=== PATIENT | female | born 1955 | race Caucasian/White ===

== ENCOUNTER 2019-04-23 11:49 | Observation (INO) | payer BC ==
[2019-04-23] MEDS ORDERED: IPRATROPIUM/ALBUTEROL (0.5MG/3MG) NEB INH ONE ×2 (12:06→12:07)
[2019-04-23] MEDS ORDERED: METHYLPREDNISOLONE PF 125MG/VIAL IVP ONE (12:07)
[2019-04-23] MEDS ORDERED: 0.9 % SODIUM CHLORIDE 1,000 ML BAG IV ONE (12:08)
--- NOTE | 2019-04-23 12:11 | Emergency Department Record ---
History of Present Illness - General Chief Complaint: Shortness of breath Stated Complaint: BRONCHITIS WORSE Time Seen by Provider: 04/23/19 12:03 Source: Patient Mode of Arrival: Ambulatory Limitations: No limitations - History of Present Illness Initial Comments: 64 yo female presents with a cough that has been ongoing for about three weeks. The cough has gradually increased. She was seen over the weekend at the [facility]. She was given breathing treatments, cough medication, steroids and antibiotics. She is not improved. She now has some green sputum. No fever. No blood in the sputum. She is a non smoker. No pulmonary disease history. MD Complaint: Cough Onset/Timin -: Week(s) Severity: Moderate Consistency: Constant Improves With: Nothing Worsens With: Coughing Known History Of: Other Associated Symptoms: Cough, Sputum production - Related Data Home Medications Medication Instructions Recorded Confirmed Last Taken Albuterol Sulfate [Proair Hfa] 1 - 2 puff IH .EVERY 4-6 HOURS PRN 04/23/19 04/23/19 Unknown Benzonatate 200 mg PO TID 04/23/19 04/23/19 Unknown Clobetasol Propionate [Temovate] 30 gm TP ASDIR 04/23/19 04/23/19 Unknown Ipratropium [place] [Atrovent Hfa] 2 spray IH TID 04/23/19 04/23/19 Unknown Lisinopril/Hydrochlorothiazide 2 tab PO DAILY 04/23/19 04/23/19 Unknown [Lisinopril-Hctz 20-12.5 mg Tab] Prednisone [Prednisone 10Mg] 10 mg PO ASDIR 04/23/19 04/23/19 Unknown Allergies Allergy/AdvReac Type Severity Reaction Status Date / Time amoxicillin Allergy RASH Verified 04/23/19 12:01 metronidazole Allergy NAUSEA AND Verified 04/23/19 12:01 VOMITING Travel Screening - Travel/Exposure Within Last 30 Days Have you traveled within the last 30 days?: No - Travel/Exposure Within Last Year Have you traveled outside the [place] in the last year?: No - Additonal Travel Details Have you been exposed to anyone with a communicable illness?: No - Travel Symptoms Symptom Screening: None Review of Systems Constitutional: Denies: Chills, Fever, Malaise, Weakness Eyes: Denies: Eye discharge ENT: Denies: Congestion, Throat pain Respiratory: Reports: Cough, Dyspnea, Wheezes. Denies: Hemoptysis, Stridor Cardiovascular: Denies: Chest pain, Palpitations, Syncope Endocrine: Denies: Fatigue, Polydipsia, Polyuria Gastrointestinal: Denies: Abdominal pain, Diarrhea, Nausea, Vomiting Genitourinary: Denies: Dysuria, Urgency Musculoskeletal: Denies: Arthralgia, Back pain, Myalgia, Neck pain Neurological: Denies: Headache, Numbness, Weakness Psychiatric: Denies: Anxiety Hematological/Lymphatic: Denies: Easy bleeding, Easy bruising Past Medical History - SOCIAL HISTORY Smoking Status: Never smoker Alcohol Use: Rare Drug Use: None - RESPIRATORY Hx Respiratory Disorders: No - CARDIOVASCULAR Hx Cardio Disorders: Yes Hx Hypertension: Yes Hx Irregular Heartbeat: Yes - NEURO Hx Neuro Disorders: No - GI Hx GI Disorders: No - Hx Genitourinary Disorders: No - ENDOCRINE Hx Endocrine Disorders: No - MUSCULOSKELETAL Hx Musculoskeletal Disorders: No - PSYCH Hx Psych Problems: No - HEMATOLOGY/ONCOLOGY Hx Hematology/Oncology Disorders: Yes Hx Cancer: Yes (uterine) Hx Chemotherapy: Yes Hx Radiation Therapy: Yes Family Medical History Any Significant Family History?: No Physical Exam - General General Appearance: Alert, Oriented x3, Cooperative, No acute distress Limitations: No limitations - Head Head exam: Atraumatic, Normal inspection - Eye Eye exam: Normal appearance, PERRL. negative: Conjunctival injection, Scleral icterus - ENT ENT exam: Normal exam, Mucous membranes moist Ear exam: Normal external inspection Nasal Exam: Normal inspection Mouth exam: Normal external inspection - Neck Neck exam: Normal inspection - Respiratory Respiratory exam: negative: Accessory muscle use, Prolonged expiratory, Rhonchi, Stridor, Wheezes - Cardiovascular Cardiovascular Exam: Regular rate, Normal rhythm, Normal heart sounds - GI/Abdominal GI/Abdominal exam: Soft. negative: Tenderness - Rectal Rectal exam: Deferred - exam: Deferred - Extremities Extremities exam: Normal inspection, Full ROM. negative: Calf tenderness, Pedal edema, Tenderness - Back Back exam: Denies: CVA tenderness (R), CVA tenderness (L) - Neurological Neurological exam: Alert, Oriented X3 - Psychiatric Psychiatric exam: Normal affect, Normal mood - Skin Skin exam: Dry, Intact, Normal color, Warm Course Vital Signs 04/23/19 11:51 Temperature 97.8 F Pulse Rate 71 Respiratory 20 Rate Blood Pressure 199/102 Pulse Ox 97 - Reevaluation(s) Reevaluation #1: 04/23/19 13:35 The CXR was reviewed No acute process The CBC was negative for acute process The HCO3 was 18 and AG 18 K is 3.3 04/23/19 13:54 The patient continues to have some wheezing and coughing I recommend OBV for breathing treatments and initiation of antibiotic with the new green sputum Medical Decision Making - Lab Data Result diagrams: 04/23/19 12:55 04/23/19 12:55 Disposition Disposition: Admit Clinical Impression: Bronchitis, Reactive airway disease that is not asthma Dyspnea Qualifiers: Dyspnea type: unspecified Qualified Code(s): R06.00 - Dyspnea, unspecified Disposition: Still a Patient at [facility] Decision to Admit: Admit from ER Decision to Admit Date: 04/23/19 Decision to Admit Time: 13:56 Condition: (2) Stable Forms: Patient Portal Access Time of Disposition: 13:56 Quality - Quality Measures Quality Measures: N/A - Blood Pressure Screening Does Patient Have Any of the Following: Active Dx of HTN Blood Pressure Classification: Hypertensive Reading Systolic Measurement: 199 Diastolic Measurement: 102 Screening for High Blood Pressure: Patient Exclusion, Hx of HTN [G9744]
[2019-04-23 13:04] LABS: ABSOLUTE NEUTROPHIL COUNT 8.11; BASO % 1.2 % (0-6); EOS % 0.1 % (0-6); GRAN % 75.4 % (47-80); HEMATOCRIT 42.1 % (35.0-47.0); HEMOGLOBIN 14.3 gm/dl (11.6-16.0); LYMPH % 17.4 % (16-45); MEAN CELL VOLUME 92.3 fl (81-97); MEAN CORPUSCULAR HEMOGLOBIN 31.4 pg (27-33); MEAN PLATELET VOLUME 11.2 fl (7.4-10.4); MONO % 5.9 % (0-9); PLATELET COUNT 138 K/uL (130-400); RED BLOOD COUNT 4.56 M/uL (3.80-5.40); RED CELL DISTRIBUTION WIDTH 12.4 % (11.5-14.5); WHITE BLOOD COUNT W/O DIFF 10.8 K/uL (4.2-12.2)
[2019-04-23 13:14] LABS: BLOOD UREA NITROGEN 16 mg/dL (8-23)
[2019-04-23 13:15] LABS: CREATININE 0.6 mg/dL (0.5-0.9); EST GLOMERULAR FILTRATION RATE > 60 mL/min
[2019-04-23 13:17] LABS: GLUCOSE,RANDOM 154 mg/dL (74-109)
[2019-04-23] MEDS ORDERED: AZITHROMYCIN 500 MG TABLET PO ONE (13:53)
[2019-04-23] MEDS ORDERED: CLOBETASOL PROPIONATE 30 GM TP SCH (14:31)
[2019-04-23] MEDS ORDERED: ALBUTEROL SULFATE (0.083%) 2.5 MG/3 ML NEB INH PRN (14:31)
[2019-04-23] MEDS ORDERED: ACETAMINOPHEN 325 MG TAB PO PRN (14:31)
[2019-04-23] MEDS: IPRATROPIUM/ALBUTEROL (0.5MG/3MG) NEB INH SCH ×3 (14:59→22:08)
[2019-04-23] MEDS ORDERED: CEFTRIAXONE 1GM/50ML BAG 1 GM/50 ML BAG IVPB SCH (15:00)
[2019-04-23] MEDS: POTASSIUM CHL 20MEQ IN 1L NS 20 MEQ/1,000 ML BAG IV SCH (15:52)
[2019-04-23] MEDS: BENZONATATE 100 MG CAPSULE PO SCH ×2 (16:35→21:34)
--- NOTE | 2019-04-23 17:33 | RADIOLOGY REPORT ---
EXAM: CHEST 2 VIEWS HISTORY: NONPRODUCTIVE COUGH FOR TWO WEEKS. TECHNIQUE: Two views of the chest. COMPARISON: None. FINDINGS: The heart and mediastinum appear normal. The lungs are clear. Skeletal structures show no acute or suspicious finding. IMPRESSION: NO SIGN OF ACUTE CHEST PATHOLOGY. JOB NUMBER: [id number] MTDD
[2019-04-23] MEDS: METHYLPREDNISOLONE PF 125MG/VIAL IVP SCH (21:33)
[2019-04-23] MEDS: AMLODIPINE BESYLATE 5MG TAB PO SCH (21:33)
[2019-04-23] MEDS ORDERED: GUAIFENESIN/D-METH. 10 ML UDC PO PRN (23:07)
[2019-04-23] MEDS ORDERED: DIPHENHYDRAMINE HCL 25 MG CAPSULE PO PRN (23:10)
[2019-04-24] MEDS: POTASSIUM CHL 20MEQ IN 1L NS 20 MEQ/1,000 ML BAG IV SCH (02:32)
[2019-04-24] MEDS: METHYLPREDNISOLONE PF 125MG/VIAL IVP SCH (05:36)
[2019-04-24] MEDS: BENZONATATE 100 MG CAPSULE PO SCH (05:37)
[2019-04-24] MEDS: IPRATROPIUM/ALBUTEROL (0.5MG/3MG) NEB INH SCH ×2 (06:11→10:13)
[2019-04-24 07:14] LABS: ABSOLUTE NEUTROPHIL COUNT 5.24; HEMATOCRIT 38.8 % (35.0-47.0); MEAN CELL VOLUME 91.5 fl (81-97); MEAN CORPUSCULAR HEMOGLOBIN 30.7 pg (27-33); MEAN CORPUSCULAR HGB CONC 33.5 g/dl (32-36); PLATELET COUNT 151 K/uL (130-400); RED BLOOD COUNT 4.24 M/uL (3.80-5.40); RED CELL DISTRIBUTION WIDTH 12.5 % (11.5-14.5); WHITE BLOOD COUNT W/O DIFF 6.7 K/uL (4.2-12.2)
[2019-04-24 07:28] LABS: BLOOD UREA NITROGEN 8 mg/dL (8-23); CREATININE 0.5 mg/dL (0.5-0.9); EST GLOMERULAR FILTRATION RATE > 60 mL/min; GLUCOSE,RANDOM 176 mg/dL (74-109)
[2019-04-24 07:35] LABS: PLATELET ESTIMATE NORMAL (NORMAL)
[2019-04-24] MEDS: AMLODIPINE BESYLATE 5MG TAB PO SCH (09:33)
[2019-04-24] MEDS ORDERED: AZITHROMYCIN 500 MG TABLET PO SCH (10:00)
[2019-04-24] MEDS ORDERED: HYDROCHLOROTHIAZIDE 25 MG TABLET PO SCH (10:00)
[2019-04-24] MEDS ORDERED: LISINOPRIL 20 MG TABLET PO SCH (10:00)
--- NOTE | 2019-04-24 11:34 | History & Physical ---
History of Present Illness - Date of Service Date of Service for History & Physical: 04/24/19 - History of Present Illness Admitting Diagnosis: Bronchitis, wheezying, dyspnea History of Present Illness: Estella Chavarria is a 64 y.o. F who presented to [facility] ED with c/o cough x 3 weeks and increasing SOB. Was seen on 04/21/19 at [facility] and was given breathing tx, tessalon perles, a prednisone taper and antibiotics. She presented to ED d/t feeling as thought she couldn't catch her breath. She denied fever, blood in sputum or chills. Did report green sputum. No hx of smoking, COPD or asthma. 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 Previous PCP: Dr. Farrell who has retired. ED course -CXR: no acute process -CBC WNL -HCO3: 18, AG 18, K+ 3.3 -Was started on Azithromycin, breathing tx and IV Salumedrol in the ED 04/24/19 1130 VS: T 97.7, HR 87, BP 141/76, RR 18, SPO2 98% on RA Pt sitting up in bedside chair with spouse at bedside. A&Ox3. Reports feeling better than yesterday and as though she can breathe today. Reports cough is still present. Reports that she does have a constant "tickle" in her throat x many years in addition to acute cough x 3 weeks. States that the tessalon perles have not been effective in helping relief the cough. Denies having any pain or SOB. Feels ready to discharge. BP elevated last evening. Was started on Norvasc 2.5mg daily. BP improved today. Pt reports that she hasn't taken her BP meds for a few days d/t feeling nauseated and not well from the bronchitis. Has been on Lisinopril 40mg daily x 20 years which she relates to the constant "tickle". Appears as though pt is also taking 62.5mg of HCTZ at home through combo meds. Discussed changing BP regimen with pt and pt agreeable as pt will be following up as a new patient [facility] in approximately 2 weeks. Travel Screening - Travel/Exposure Within Last 30 Days Have you traveled within the last 30 days?: No - Travel/Exposure Within Last Year Have you traveled outside the [place] in the last year?: No - Additonal Travel Details Have you been exposed to anyone with a communicable illness?: No - Travel Symptoms Symptom Screening: None Review of Systems Reviewed: No additional complaints except as noted below Constitutional: Denies: Chills, Fever, Malaise, Weakness Eyes: Denies: Eye discharge ENT: Denies: Congestion, Throat pain Respiratory: Reports: Cough, Dyspnea, Wheezes. Denies: Hemoptysis, Stridor Cardiovascular: Denies: Chest pain, Dyspnea on exertion, Edema, Palpitations, Syncope Endocrine: Denies: Fatigue Gastrointestinal: Denies: Abdominal pain, Nausea, Vomiting Musculoskeletal: Denies: Arthralgia, Back pain, Myalgia, Neck pain Neurological: Denies: Headache, Numbness, Weakness Psychiatric: Denies: Anxiety Hematological/Lymphatic: Denies: Easy bleeding, Easy bruising Past Medical History - SOCIAL HISTORY Smoking Status: Never smoker - RESPIRATORY Hx Respiratory Disorders: No - CARDIOVASCULAR Hx Cardio Disorders: Yes Hx Hypertension: Yes Hx Irregular Heartbeat: Yes - NEURO Hx Neuro Disorders: No - GI Hx GI Disorders: No - Hx Genitourinary Disorders: No - ENDOCRINE Hx Endocrine Disorders: No - MUSCULOSKELETAL Hx Musculoskeletal Disorders: No - PSYCH Hx Psych Problems: No - HEMATOLOGY/ONCOLOGY Hx Hematology/Oncology Disorders: Yes Hx Cancer: Yes (uterine) Hx Chemotherapy: Yes Hx Radiation Therapy: Yes Family Medical History Any Significant Family History?: Yes Hx Cancer: Father, Mother, Grandparents H&P Meds/Allergies - Allergies Allergies: Allergies Allergy/AdvReac Type Severity Reaction Status Date / Time amoxicillin Allergy RASH Verified 04/23/19 12:01 metronidazole Allergy NAUSEA AND Verified 04/23/19 12:01 VOMITING - Home Medications Home Medications Medication Instructions Recorded Confirmed Last Taken Albuterol Sulfate [Proair Hfa] 1 - 2 puff IH .EVERY 4-6 HOURS PRN 04/23/19 04/23/19 Unknown Benzonatate 200 mg PO TID 04/23/19 04/23/19 Unknown Clobetasol Propionate [Temovate] 30 gm TP ASDIR 04/23/19 04/23/19 Unknown Ipratropium [place] [Atrovent Hfa] 2 spray IH TID 04/23/19 04/23/19 Unknown Previous Rx's Medication Instructions Recorded Acetaminophen [Tylenol 325Mg] 650 mg PO Q6H PRN tablet 04/24/19 Azithromycin [Zithromax] 500 mg PO DAILY 1 Days #1 tab 04/24/19 Hydrochlorothiazide [Hctz] 25 mg PO DAILY 30 Days #30 tablet 04/24/19 Losartan Potassium 50 mg PO DAILY 30 Days #30 tablet 04/24/19 Prednisone 50 mg PO DAILY 5 Days #5 tablet 04/24/19 - Active Medications Active Medications: Current Medications Acetaminophen (Tylenol 325mg) 650 mg PO Q6H PRN PRN Reason: PAIN - MILD(1-4)/FEVER Albuterol Sulfate (Albuterol Sulfate) 2.5 mg INH RESP.Q2H PRN PRN Reason: DIFFICULTY IN BREATHING Last Admin: 04/24/19 07:38 Dose: 2.5 mg Documented by: Albuterol/Ipratropium (Duoneb) 3 ml INH RESP.Q4H.WA [facility] Last Admin: 04/24/19 10:13 Dose: 3 ml Documented by: Amlodipine Besylate (Norvasc) 2.5 mg PO DAILY [facility] Last Admin: 04/24/19 09:33 Dose: 2.5 mg Documented by: Azithromycin (Zithromax) 500 mg PO DAILY [facility] Last Admin: 04/24/19 09:32 Dose: 500 mg Documented by: Benzonatate (Tessalon) 200 mg PO Q8HR [facility] Last Admin: 04/24/19 05:37 Dose: 200 mg Documented by: Diphenhydramine HCl (Benadryl Capsule) 50 mg PO QHS PRN PRN Reason: INSOMNIA Guaifenesin (Robitussin Dm) 10 ml PO Q4H PRN PRN Reason: COUGH Last Admin: 04/24/19 02:30 Dose: 10 ml Documented by: Hydrochlorothiazide (Hctz 25mg) 25 mg PO DAILY [facility] Last Admin: 04/24/19 09:33 Dose: 25 mg Documented by: CEFTRIAXONE 1GM/50ML BAG (Ceftriaxone 1 Gm-D5w Bag) 1 gm in 50 mls @ 100 mls/hr IVPB Q24H [facility] Last Infusion: 04/23/19 16:25 Dose: Infused Documented by: Potassium Chloride/Sodium Chloride ( Potassium Chl 20meq/) 20 meq in 1,000 mls @ 100 mls/hr IV Q10H [facility] Last Admin: 04/24/19 02:32 Dose: 100 mls/hr Documented by: Lisinopril (Zestril) 40 mg PO DAILY [facility] Last Admin: 04/24/19 09:32 Dose: 40 mg Documented by: Methylprednisolone Sodium Succinate (Solu-Medrol) 60 mg IVP Q8HR [facility] Last Admin: 04/24/19 05:36 Dose: 60 mg Documented by: Physical Exam - Vital Signs Vital Signs: Vital Signs - Last 24 Hrs Temp Pulse Pulse Resp BP BP Pulse Ox 04/24/19 11:12 97.7 F 87 18 141/76 98 04/24/19 10:13 69 18 97 04/24/19 07:38 78 20 99 04/24/19 06:09 65 16 96 04/24/19 04:50 97.7 F 56 L 18 170/62 98 04/23/19 22:09 68 16 95 04/23/19 20:35 20 04/23/19 19:51 98.2 F 73 20 170/71 96 04/23/19 17:59 75 18 98 04/23/19 15:26 94 H 24 04/23/19 14:59 81 20 99 04/23/19 14:24 98.1 F 72 19 195/89 100 04/23/19 14:09 77 16 197/90 98 04/23/19 13:34 80 20 199/92 97 04/23/19 12:08 75 22 98 04/23/19 11:51 97.8 F 71 20 199/102 97 - General General Appearance: Alert, Oriented x3, Cooperative, No acute distress Limitations: No limitations - Head Head exam: Atraumatic, Normal inspection - Eye Eye exam: Normal appearance, PERRL. negative: Conjunctival injection, Scleral icterus - ENT ENT exam: Normal exam, Mucous membranes moist Ear exam: Normal external inspection Nasal Exam: Normal inspection Mouth exam: Normal external inspection - Neck Neck exam: Normal inspection - Respiratory Respiratory exam: Wheezes. negative: Accessory muscle use, Prolonged expiratory, Rhonchi, Stridor - Cardiovascular Cardiovascular Exam: Regular rate, Normal rhythm, Normal heart sounds - GI/Abdominal GI/Abdominal exam: Soft. negative: Tenderness - Rectal Rectal exam: Deferred - exam: Deferred - Extremities Extremities exam: Normal inspection, Full ROM. negative: Calf tenderness, Pedal edema, Tenderness - Back Back exam: Denies: CVA tenderness (R), CVA tenderness (L) - Neurological Neurological exam: Alert, Oriented X3 - Psychiatric Psychiatric exam: Normal affect, Normal mood - Skin Skin exam: Dry, Intact, Normal color, Warm Results - Labs Result Diagrams: 04/24/19 07:08 04/24/19 07:08 Labs Last 24 Hours: Laboratory Results - last 24 hr 04/23/19 04/23/19 04/24/19 12:55 12:55 07:08 WBC 10.8 6.7 RBC 4.56 4.24 Hgb 14.3 13.0 Hct 42.1 38.8 MCV 92.3 91.5 MCH 31.4 30.7 MCHC 34.0 33.5 RDW 12.4 12.5 Plt Count 138 151 MPV 11.2 H 11.0 H Gran % 75.4 Neutrophils % 80.0 Band Neutrophils % 2.0 Lymphocytes % 17.4 Monocytes % 5.9 Eosinophils % 0.1 Not Reportable Basophils % 1.2 Not Reportable Absolute Neutrophils 8.11 5.24 Lymphocytes 15.0 L Monocytes 3.0 Platelet Estimate Normal RBC Morphology Normal Sodium 141 Potassium 3.3 L Chloride 105 Carbon Dioxide 18.0 L Anion Gap 18.0 H BUN 16 Creatinine 0.6 Estimated GFR > 60 Random Glucose 154 H Calcium 9.0 04/24/19 07:08 WBC RBC Hgb Hct MCV MCH MCHC RDW Plt Count MPV Gran % Neutrophils % Band Neutrophils % Lymphocytes % Monocytes % Eosinophils % Basophils % Absolute Neutrophils Lymphocytes Monocytes Platelet Estimate RBC Morphology Sodium 145 Potassium 3.7 Chloride 107 Carbon Dioxide 23.0 Anion Gap 15.0 BUN 8 Creatinine 0.5 Estimated GFR > 60 Random Glucose 176 H Calcium 9.1 VTE H&P Assessment - Risk for VTE Risk for VTE: Yes Risk Level: Moderate Risk Assessment Date: 04/24/19 Risk Assessment Time: 11:30 VTE Orders Placed or Will Be Placed: Yes Plan - Detailed Diagnosis and Plan (1) Dyspnea Status: Acute Qualifiers: Dyspnea type: unspecified Qualified Code(s): R06.00 - Dyspnea, unspecified Base Code: R06.00 - DYSPNEA, UNSPECIFIED Comment: 04/24/19: -Cough x 3 weeks, increasing dyspnea, green sputum production -CXR normal, no pulmonary hx -Albuterol nebs q. 2 hours while awake as needed -Tessalon Perles q. 8 hours PRN -Guaifenesin/Dextromethorphan PO q. 4 hours PRN (2) Bronchitis Status: Acute Base Code: J40 - BRONCHITIS, NOT SPECIFIED ACUTE OR CHRONIC Comment: 04/24/19: -Increased dyspnea despite intervention by [facility] on 04/21/19 -Rocephin IV and Zithromycin 500mg PO daily -Solumedrol 60mg IV q. 8 hours -Albuterol Nebs q. 2 hours PRN -Tessalon perles q. 8 hours PRN -Guaifenesin/Dextromethorphan q. 4 hours PRN (3) Essential hypertension with goal blood pressure less than 140/90 Status: Acute Base Code: I10 - ESSENTIAL (PRIMARY) HYPERTENSION Comment: 04/24/19: -Lisinopril 40mg daily and Hctz 25mg daily ordered -SBP in 190s during day on 04/23/19, Norvasc 2.5mg PO added last night -BP 141/76 this a.m. -Home meds: Lisinopril 20/12.5mg, Lisinopril 20mg and Hctz 25mg daily (4) Full code status Status: Acute Base Code: Z78.9 - OTHER SPECIFIED HEALTH STATUS Comment: 04/24/19: -Full code this admission (5) DVT prophylaxis Status: Acute Base Code: Z29.9 - ENCOUNTER FOR PROPHYLACTIC MEASURES, UNSPECIFIED Comment: 04/24/19 -Moderate risk -Nursing to encourage ambulation
--- NOTE | 2019-04-24 11:56 | Discharge Summary ---
Providers Discharge Summary Date: 04/24/19 Date of admission: 04/23/19 14:18 Attending physician: ESTHER SINGLETON Primary care physician: MEMO FARRELL D.O. Physical Exam - Vital Signs Vital Signs: Vital Signs - Last 24 Hrs Temp Pulse Pulse Resp BP Pulse Ox 04/24/19 11:12 97.7 F 87 18 141/76 98 04/24/19 10:13 69 18 97 04/24/19 07:38 78 20 99 04/24/19 06:09 65 16 96 04/24/19 04:50 97.7 F 56 L 18 170/62 98 04/23/19 22:09 68 16 95 04/23/19 20:35 20 04/23/19 19:51 98.2 F 73 20 170/71 96 04/23/19 17:59 75 18 98 04/23/19 15:26 94 H 24 04/23/19 14:59 81 20 99 04/23/19 14:24 98.1 F 72 19 195/89 100 04/23/19 14:09 77 16 197/90 98 04/23/19 13:34 80 20 199/92 97 04/23/19 12:08 75 22 98 - General General Appearance: Alert, Oriented x3, Cooperative, No acute distress Limitations: No limitations - Head Head exam: Atraumatic, Normal inspection - Eye Eye exam: Normal appearance, PERRL. negative: Conjunctival injection, Scleral icterus - ENT ENT exam: Normal exam, Mucous membranes moist Ear exam: Normal external inspection Nasal Exam: Normal inspection Mouth exam: Normal external inspection - Neck Neck exam: Normal inspection - Respiratory Respiratory exam: Wheezes. negative: Accessory muscle use, Prolonged expiratory, Rhonchi, Stridor - Cardiovascular Cardiovascular Exam: Regular rate, Normal rhythm, Normal heart sounds - GI/Abdominal GI/Abdominal exam: Soft. negative: Tenderness - Rectal Rectal exam: Deferred - exam: Deferred - Extremities Extremities exam: Normal inspection, Full ROM. negative: Calf tenderness, Pedal edema, Tenderness - Back Back exam: Denies: CVA tenderness (R), CVA tenderness (L) - Neurological Neurological exam: Alert, Oriented X3 - Psychiatric Psychiatric exam: Normal affect, Normal mood - Skin Skin exam: Dry, Intact, Normal color, Warm Hospitalization - Hospitalization Admission Diagnosis: Bronchitis, wheezying, dyspnea - Problem List/Discharge Diagnosis (1) Dyspnea Status: Acute Discharge Diagnosis: Dyspnea type: unspecified Qualified Code(s): R06.00 - Dyspnea, unspecified Base Code: R06.00 - DYSPNEA, UNSPECIFIED Comment: 04/24/19: -Cough x 3 weeks, increasing dyspnea, green sputum production -CXR normal, no pulmonary hx -Nebulizer machine ordered and given -Albuterol nebs TID PRN ordered for home use -Continue Tessalon Perles q. 8 hours PRN (pt already has supply at home) -Trial Mucinex 600mg PO BID until increased secretions improve (2) Bronchitis Status: Acute Base Code: J40 - BRONCHITIS, NOT SPECIFIED ACUTE OR CHRONIC Comment: 04/24/19: -Increased dyspnea despite intervention by [facility] on 04/21/19 -Zithromycin 500mg PO x 1 in am on 04/25/19 to total three 500mg doses -Prednisone 50mg daily x 5, start on 04/25/19 -Albuterol Nebs TID PRN -Nebulizer machine ordered and given to pt -Continue Tessalon perles q. 8 hours PRN -Mucinex 600mg PO BID PRN (3) Essential hypertension with goal blood pressure less than 140/90 Status: Acute Base Code: I10 - ESSENTIAL (PRIMARY) HYPERTENSION Comment: 04/24/19: -Had not been taking BP meds over the past few days -BP 141/76 this a.m. after receiving Norvasc 2.5mg, Lisinopril 40mg and 25mg Hctz yesterday -Home meds: Lisinopril 20/12.5mg, Lisinopril 20mg and Hctz 25mg daily -Stop Lisinopril and combination Lisinopril/Hctz d/t constant tickle in throat -Start Losartan 50mg daily and Hctz 25mg daily (kidney function normal) -Pt to f/u in 2 weeks with [facility] to establish care. (4) DVT prophylaxis Status: Acute Base Code: Z29.9 - ENCOUNTER FOR PROPHYLACTIC MEASURES, UNSPECIFIED Comment: 04/24/19 -Moderate risk -Nursing to encourage ambulation (5) Full code status Status: Acute Base Code: Z78.9 - OTHER SPECIFIED HEALTH STATUS Comment: 04/24/19: -Full code this admission - Hospitalization Course Disposition: Home, Self-Care Hospital Course: Estella Chavarria is a 64 y.o. F who presented to [facility] ED with c/o cough x 3 weeks and increasing SOB. Was seen on 04/21/19 at [facility] and was given breathing tx, tessalon perles, a prednisone taper and antibiotics. She presented to ED d/t feeling as thought she couldn't catch her breath. She denied fever, blood in sputum or chills. Did report green sputum. No hx of smoking, COPD or asthma. 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 Previous PCP: Dr. Farrell who has retired. ED course -CXR: no acute process -CBC WNL -HCO3: 18, AG 18, K+ 3.3 -Was started on Azithromycin, breathing tx and IV Salumedrol in the ED 04/24/19 1130 VS: T 97.7, HR 87, BP 141/76, RR 18, SPO2 98% on RA Pt sitting up in bedside chair with spouse at bedside. A&Ox3. Reports feeling better than yesterday and as though she can breathe today. Reports cough is still present. Reports that she does have a constant "tickle" in her throat x many years in addition to acute cough x 3 weeks. States that the tessalon perles have not been effective in helping relief the cough. Denies having any pain or SOB. Feels ready to discharge. BP elevated last evening. Was started on Norvasc 2.5mg daily. BP improved today. Pt reports that she hasn't taken her BP meds for a few days d/t feeling nauseated and not well from the bronchitis. Has been on Lisinopril 40mg daily x 20 years which she relates to the constant "tickle". Appears as though pt is also taking 62.5mg of HCTZ at home through combo meds. Discussed changing BP regimen with pt and pt agreeable as pt will be following up as a new patient with [facility] in approximately 2 weeks. Procedures: Imaging and X-Rays 04/23/19 12:07 CHEST 2 VIEWS [RAD] Stat Cardiology Procedures 04/23/19 14:31 Vp Care Management .Continuous Abnormal Labs: Abnormal Lab Results 04/23/19 04/23/19 04/24/19 Range/Units 12:55 12:55 07:08 MPV 11.2 H 11.0 H (7.4-10.4) fl Lymphocytes 15.0 L (16-45) % Potassium 3.3 L (3.4-4.5) mmol/L Carbon Dioxide 18.0 L (22-29) mmol/L Anion Gap 18.0 H (7-16) Random Glucose 154 H (74-109) mg/dL 04/24/19 Range/Units 07:08 MPV (7.4-10.4) fl Lymphocytes (16-45) % Potassium (3.4-4.5) mmol/L Carbon Dioxide (22-29) mmol/L Anion Gap (7-16) Random Glucose 176 H (74-109) mg/dL Condition at Discharge: (1) Good Discharge Medications - Discharge Medications Prescriptions: Hydrochlorothiazide [Hctz] 25 mg PO DAILY 30 Days #30 tablet Losartan Potassium 50 mg PO DAILY 30 Days #30 tablet Prednisone 50 mg PO DAILY 5 Days #5 tablet Azithromycin [Zithromax] 500 mg PO DAILY 1 Days #1 tab Home Medications: Ambulatory Orders Albuterol Sulfate [Proair Hfa] 1 - 2 puff IH .EVERY 4-6 HOURS PRN 04/23/19 [Last Taken Unknown] Benzonatate 200 mg PO TID 04/23/19 [Last Taken Unknown] Clobetasol Propionate [Temovate] 30 gm TP ASDIR 04/23/19 [Last Taken Unknown] Ipratropium [place] [Atrovent Hfa] 2 spray IH TID 04/23/19 [Last Taken Unknown] Acetaminophen [Tylenol 325Mg] 650 mg PO Q6H PRN tablet 04/24/19 [Last Taken Unknown] Azithromycin [Zithromax] 500 mg PO DAILY 1 Days #1 tab 04/24/19 [Last Taken Unknown] Hydrochlorothiazide [Hctz] 25 mg PO DAILY 30 Days #30 tablet 04/24/19 [Last Taken Unknown] Losartan Potassium 50 mg PO DAILY 30 Days #30 tablet 04/24/19 [Last Taken Unknown] Prednisone 50 mg PO DAILY 5 Days #5 tablet 04/24/19 [Last Taken Unknown] Discharge Plan - Discharge Instructions Activity at Discharge: Resume Usual Activities As Tolerated Diet at Discharge: Regular Diet Instructions: Acute Bronchitis (GEN), How Your Lungs Work (DC) Additional Instructions: Activity: Resume Usual Activities As Tolerated Diet: Regular Diet Follow Up: with new Primary Care Physician Additional: Take Mucinex 600mg every 12 hours until sputum production decreases Can take Tessalon Perles as needed Drink 8-10 cups of water per day Use Albuterol nebulizers up to 3 times per day as needed Carry Albuterol rescue inhaler when away from home Stop taking the blood pressure medications that you have at home Start Hydrochlorothiazide 25mg every morning (this is a water pill) Start Losartan 50mg every morning Quality Measures - Quality Measures Quality Measures: Documentation of Current Medications in Medical Record, Screening for High Blood Pressure and F/U Documented - Current Medications Quality Measure: Measure #130: Documentation of Current Medications Documentation of Current Medications: <Current Medications Documented/Reviewed> [[id number]] - Blood Pressure Screening Quality Measure: Screening for High Blood Pressure and Follow-Up Documented Does Patient Have Any of the Following: Active Dx of HTN Blood Pressure Classification: Hypertensive Reading Systolic Measurement: 141 Diastolic Measurement: 76 Screening for High Blood Pressure: Patient Exclusion, Hx of HTN [G9744] - Elder Abuse Suspicion Index EASI Reference Information: Kathryn JUAN, Blaine C, Weston D, Bere Mirza.Development and validation of a tool to assist physicians identification of elder abuse: The Elder Abuse Suspicion Index (EASI ). Journal of Elder Abuse and Neglect, 2008; 20 (3): 276-300.
== END 2019-04-24 13:15 | disposition home or self-care (01) ==
LOC: ER 11:49 → MEDSURG 14:18
PROVIDERS: ADMIT Internal Medicine; ATTEND Internal Medicine
DX: J40 Bronchitis, not specified as acute or chronic (principal); I10 Essential (primary) hypertension; R05 Cough; Z85.42 Personal history of malignant neoplasm of other parts of uterus
CPT/HCPCS: 71046; 80048; 85025; 85027; 94640; 96374; 99220; 99285; J0696; J2930; J7030; J7613

== ENCOUNTER 2019-05-28 08:04 | Day surgery (SDC) | payer BC ==
[~2019-05-28 08:04] MED LIST: ACETAMINOPHEN 1,000 MG/100 ML BTL IVPB ONE
[2019-05-28] MEDS ORDERED: PROPOFOL 10 MG/ML VIAL IV ONE (08:05)
[2019-05-28] MEDS ORDERED: MIDAZOLAM HCL 2MG/2ML VIAL IV ONE (08:05)
[2019-05-28] MEDS ORDERED: KETAMINE HCL 100MG/1ML VIAL INJ ONE (08:05)
[2019-05-28] MEDS ORDERED: KETOROLAC 30 MG/ML VIAL IVP ONE (08:05)
[2019-05-28] MEDS ORDERED: RINGERS SOLUTION,LACTATED 1,000 ML IV ONE (08:40)
[2019-05-28] MEDS ORDERED: BUPIVACAINE 0.25% W/EPI MPF 30ML VIAL SQ ONE ×2 (11:34)
--- NOTE | 2019-05-30 10:43 | Operative Note ---
DATE OF SURGERY: 05/28/2019 SURGEON: Paul High DO PREOPERATIVE DIAGNOSIS: Left upper chest wall mass. POSTOPERATIVE DIAGNOSIS: Left upper chest wall mass. OPERATION: Wide excision of chest wall mass. INDICATION: The patient is a 64-year-old male who presented to the office with a newfound mass in her left upper chest wall. This appeared to be probably basal cell cancer. We did discuss wide excision. Risks, benefits, and alternatives were discussed. Risks include bleeding, infection, positive margins, need for re-excision. She understood this fully. Thereafter, consent was signed and questions answered. PROCEDURE: The patient was taken to the operating room and placed in a supine position. General anesthesia was administered per the department of anesthesia. The patient's left arm was tucked to the side and her chest was prepped and draped in the usual fashion. Then 5 mm margins were mapped out. The area was anesthetized with a total of 10 mL of 0.25% Sensorcaine with epinephrine. Oblique incision was made. This was carried down to subcutaneous tissue. This measured about 10 x 4 cm into the subcu. This was fully excised. The lateral and anterior margins were tagged. The wound was undermined and closed with 2-0 Vicryl and 3-0 nylon. The patient was taken to the recovery room in stable condition. Final pathology pending. [facility]
== END 2019-05-28 12:24 | disposition home or self-care (01) ==
LOC: SUR 08:04
PROVIDERS: ATTEND Surgery
DX: C44.529 Squamous cell carcinoma of skin of other part of trunk (principal); I10 Essential (primary) hypertension
CPT/HCPCS: 11604; 12032; 00400; J1885; J3490; J7120